=== PATIENT | male | born 1995 | race African-American/Black ===

== ENCOUNTER 2016-11-20 19:27 | Emergency (ER) | payer OTHER ==
[~2016-11-20] VITALS: Ht 180.3 cm; Wt 66.2 kg
[~2016-11-20 19:27] MED LIST: AMOXIL500 MG PO
[2016-11-20 19:59] LABS: HEMOGLOBIN 14.7 g/dL (14.1-18.0); LYMPH # 4.7 K/mm3 (0.7-4.5); LYMPH % 34.6 % (10-50)
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
[2016-11-20 21:12] VITALS: BP 127/72
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
== END 2016-11-20 21:36 | disposition short-term general hospital (02) ==
LOC: ER 19:27
PROVIDERS: Emergency Medicine
DX: S22.41XA Multiple fractures of ribs, right side, initial encounter for closed fracture (principal); S36.428A Contusion of other part of small intestine, initial encounter; S27.321A Contusion of lung, unilateral, initial encounter; V43.53XA Car driver injured in collision with pick-up truck in traffic accident, initial encounter; Y92.410 Unspecified street and highway as the place of occurrence of the external cause
CPT/HCPCS: Q9967